=== PATIENT | female | born 1940 | race Caucasian/White ===

== ENCOUNTER 2018-08-19 11:40 | Day surgery (SDC) | payer MEDICARE, OTHER, SELFPAY ==
[2018-08-19 12:31] VITALS: BP 192/94; PULSE 74; RESP 12; TEMP 36.9; O2SAT 100; BMI 20.5
[2018-08-19] MEDS: PROPARACAINE 0.5% OPHTH SOL 2 DROPS EYE-OP (12:38)
[2018-08-19] MEDS: CATARACT EYE COMPOUND (10 DROPS/SYRINGE) 3 DROPS EYE-OP (12:38)
--- NOTE | 2018-08-19 13:09 | P.OP.PRE_ITS ---
Pre-operative Note Interval Note Changes: No
--- NOTE | 2018-08-19 13:09 | PM.PREOP ---
Pre-operative Note Interval Note Changes: No
--- NOTE | 2018-08-19 13:09 | PM.OP.1 ---
Operative Date/Time/Diagnoses Pre-op diagnosis: Nuclear Cataract Left eye Post-op diagnosis: same Procedure & Clinicians Surgeon: Hector Prado Anesthesia Type: MAC +/- and Sedation Operative Notes Procedure in detail: Patient brought to the operating suite. Tetracaine drops placed in the left eye. Patient was prepped and draped in sterile manner. Wire lid speculum was placed in the eye. Betadine drops were placed on the eye. This was irrigated. Lidocaine jelly was placed on the eye. A paracentesis port was created with a side-port blade. 0.1 mL 1% preservative free lidocaine was injected into the anterior chamber. The anterior chamber was deepened with viscoelastic. 2.6 mm keratome was used to create a temporal clear corneal incision. Cystotome and Utrata forceps were used to create continuous tear capsulorrhexis. Balanced salt solution was used to hydro dissect the nucleus. The phacoemulsification handpiece was inserted and the nucleus was removed using the stop and chop technique. The nucleus was very dense. The irrigation aspiration handpiece was inserted and the remaining cortex was removed. Anterior chamber was deepened with viscoelastic. An James ZCB00 intraocular lens with a power of 23.0 was injected into the capsular bag. Irrigation aspiration handpiece was inserted and the remaining viscoelastic was removed. Incision was hydrated with balanced salt solution and found to be leak free with pressure with Weck-Shae sponges. 0.1 mL Vigamox injected anterior chamber. 0.3 mL Kenalog 10 mg was injected subconjunctivally. Lid speculum was removed. The patient left the operating room in excellent condition. Complications: none Condition: stable Disposition: same day surgery
--- NOTE | 2018-08-19 13:23 | SUR.OPER ---
Supine on eye stretcher, head on extension cradle secured with tape. Arms tucked at sides with blanket. Pillow under knees.
[2018-08-19] MEDS: CHONDROIDTIN/SOD HYALURONATE 1.05 ML SYRINGE INTRAOCULA (13:29)
[2018-08-19] MEDS: LIDOCAINE JELLY 2% 5 ML 1 APPLIC TOP (13:29)
[2018-08-19] MEDS: MOXIFLOXACIN OPHTH DROPS 3 ML BOTTLE 2 DROPS INJ (13:29)
[2018-08-19] MEDS: TETRACAINE 0.5% OPHTH DROPS 15 ML 2 DROPS EYE-LEFT (13:30)
[2018-08-19] MEDS: PHENYLEPHRINE/LIDOCAINE VIAL (OR) 0.2 ML EYE-OP (13:30)
[2018-08-19] MEDS: TRIAMCINOLONE 50 MG/5 ML VIAL INJ (13:30)
[2018-08-19] MEDS: BALANCED SALT IRRIG SOLN NO.2 500 ML, EPINEPHrine 1 MG IRR (13:31)
[2018-08-19 13:49] VITALS: BP 159/76; PULSE 64; RESP 16; TEMP 36.3; O2SAT 98
== END 2018-08-19 13:58 ==
PROVIDERS: PCP Nurse Practitioner Family; Visit Provider Ophthalmology
DX: H25.12 Age-related nuclear cataract, left eye (principal); I10 Essential (primary) hypertension; I49.9 Cardiac arrhythmia, unspecified
CPT/HCPCS: J0171; J2250; J3010; J3301

== ENCOUNTER 2018-09-02 11:25 | Day surgery (SDC) | payer MEDICARE, OTHER, SELFPAY ==
[2018-09-02] MEDS: PROPARACAINE 0.5% OPHTH SOL 2 DROPS EYE-OP (12:05)
[2018-09-02 12:10] VITALS: BP 181/85; PULSE 76; RESP 15; TEMP 36.2; O2SAT 98; BMI 20.5
[2018-09-02] MEDS: CATARACT EYE COMPOUND (10 DROPS/SYRINGE) 3 DROPS EYE-OP (12:18)
--- NOTE | 2018-09-02 13:26 | P.OP.PRE_ITS ---
Pre-operative Note Interval Note Changes: No
--- NOTE | 2018-09-02 13:26 | PM.PREOP ---
Pre-operative Note Interval Note Changes: No
--- NOTE | 2018-09-02 13:26 | PM.OP.1 ---
Operative Date/Time/Diagnoses Pre-op diagnosis: Nuclear cataract right eye Procedure & Clinicians Procedure: Cataract Surgery Same procedure as scheduled: Yes Surgeon: Hector Prado Anesthesia Type: MAC +/- and Sedation Operative Notes Procedure in detail: Patient brought to the operating suite. Tetracaine drops placed in the right eye. Patient was prepped and draped in sterile manner. Wire lid speculum was placed in the eye. Betadine drops were placed on the eye. This was irrigated. Lidocaine jelly was placed on the eye. A paracentesis port was created with a side-port blade. 0.1 mL 1% preservative free lidocaine was injected into the anterior chamber. The anterior chamber was deepened with viscoelastic. 2.6 mm keratome was used to create a temporal clear corneal incision. Cystotome and Utrata forceps were used to create continuous tear capsulorrhexis. Balanced salt solution was used to hydro dissect the nucleus. The phacoemulsification handpiece was inserted and the nucleus was removed using the stop and chop technique. The cataract was very dense. The irrigation aspiration handpiece was inserted and the remaining cortex was removed. Anterior chamber was deepened with viscoelastic. An James ZCB00 intraocular lens with a power of 24.0 was injected into the capsular bag. Irrigation aspiration handpiece was inserted and the remaining viscoelastic was removed. Incision was hydrated with balanced salt solution and found to be leak free with pressure with Weck-Shae sponges. 0.1 mL Vigamox injected anterior chamber. 0.3 mL Kenalog 10 mg was injected subconjunctivally. Lid speculum was removed. The patient left the operating room in excellent condition. Complications: none Condition: stable Disposition: same day surgery
[2018-09-02] MEDS: PHENYLEPHRINE/LIDOCAINE VIAL (OR) 0.2 ML EYE-OP (13:38)
[2018-09-02] MEDS: CHONDROIDTIN/SOD HYALURONATE 1.05 ML SYRINGE INTRAOCULA (13:39)
[2018-09-02] MEDS: TRIAMCINOLONE 50 MG/5 ML VIAL INJ (13:39)
[2018-09-02] MEDS: MOXIFLOXACIN OPHTH DROPS 3 ML BOTTLE 2 DROPS INJ (13:39)
[2018-09-02] MEDS: TETRACAINE 0.5% OPHTH DROPS 15 ML 2 DROPS EYE-RIGHT (13:40)
[2018-09-02] MEDS: BALANCED SALT IRRIG SOLN NO.2 500 ML, EPINEPHrine 1 MG IRR (13:40)
[2018-09-02] MEDS: LIDOCAINE JELLY 2% 5 ML 1 APPLIC TOP (13:40)
[2018-09-02 13:52] VITALS: BP 141/78; PULSE 62; RESP 16; TEMP 36.2; O2SAT 99
== END 2018-09-02 14:07 ==
PROVIDERS: PCP Nurse Practitioner Family; Visit Provider Ophthalmology
DX: H25.11 Age-related nuclear cataract, right eye (principal); I10 Essential (primary) hypertension; R00.9 Unspecified abnormalities of heart beat
CPT/HCPCS: J0171; J2250; J3010; J3301